=== PATIENT | male | born 1985 | race Caucasian/White ===

== ENCOUNTER 2017-11-21 20:09 | Emergency (ER) | payer SELFPAY ==
[~2017-11-21] VITALS: Ht 175.3 cm; Wt 94.3 kg
[~2017-11-21 20:09] MED LIST: NAPR-243 PO
[2017-11-21] MEDS ORDERED: NS IV 1000 ML 1,000 ML IV ONE (20:43)
[2017-11-21] MEDS ORDERED: fentaNYL INJECTION 100 MCG/2 ML AMP IVP ONE (20:45)
[2017-11-21] MEDS ORDERED: IOHEXOL 350 MG/ML 100 ML (OMNIPAQUE 350) VIAL IV ONE ×2 (21:00→22:30)
[2017-11-21 21:18] LABS: HEMOGLOBIN 15.1 G/DL (13.3-17.7); MEAN PLATELET VOLUME 9.2 FL (7.4-10.4); RED BLOOD COUNT 4.74 10^6/uL (4.35-5.85); RED CELL DISTRIBUTION WIDTH 12.1 % (10.0-14.5); WHITE BLOOD COUNT 16.1 10^3/uL (4.3-11.0)
[2017-11-21 21:34] LABS: ALANINE AMINOTRANSFERASE 18 U/L (0-55); ALBUMIN 3.9 GM/DL (3.2-4.5); ALKALINE PHOSPHATASE 67 U/L (40-136); BILIRUBIN,DIRECT 0.2 MG/DL (0.0-0.3); BILIRUBIN,INDIRECT 0.4 MG/DL; BILIRUBIN,TOTAL 0.6 MG/DL (0.1-1.0); BUN/CREATININE RATIO 13; CARBON DIOXIDE 25 MMOL/L (21-32); CHLORIDE 105 MMOL/L (98-107); CREATININE SERUM 1.04 MG/DL (0.60-1.30); GFR ESTIMATED > 60; GLUCOSE 103 MG/DL (70-105); POTASSIUM 3.9 MMOL/L (3.6-5.0); SODIUM 141 MMOL/L (135-145); TOTAL PROTEIN 7.3 GM/DL (6.4-8.2)
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
[2017-11-21] MEDS ORDERED: KETOROLAC 30 MG/ML VIAL IVP ONE (22:30)
[2017-11-21] MEDS ORDERED: CATHETER FLUSH 10 ML SYR IV PRN (22:30)
[2017-11-21 22:33] LABS: BILIRUBIN,URINE NEGATIVE (NEGATIVE); CLARITY,URINE CLEAR; COLOR,URINE YELLOW; GLUCOSE, URINE (UA) NEGATIVE (NEGATIVE); KETONES,URINE NEGATIVE (NEGATIVE); LEUKOCYTE ESTERASE ,URINE NEGATIVE (NEGATIVE); NITRITE,URINE NEGATIVE (NEGATIVE); PH,URINE 6.5 (5-9); PROTEIN,URINE 1+ (NEGATIVE); UROBILINOGEN,URINE NORMAL (NORMAL)
[2017-11-21 22:42] LABS: BACTERIA,URINE NEGATIVE /HPF; URINE OTHER FEW SPERM /HPF
[2017-11-21 23:02] LABS: AMPHETAMINE SCREEN, URINE POSITIVE (NEGATIVE); BARBITURATE SCREEN URINE NEGATIVE (NEGATIVE); BENZODIAZEPINES SCREEN URINE NEGATIVE (NEGATIVE); CANNABINOID SCREEN, URINE POSITIVE (NEGATIVE); COCAINE SCREEN URINE NEGATIVE (NEGATIVE); METHADONE STAT NEGATIVE (NEGATIVE); METHAMPHETAMINE SCREEN URINE S POSITIVE (NEGATIVE); OPIATE SCREEN URINE NEGATIVE (NEGATIVE); OXYCODONE STAT NEGATIVE (NEGATIVE); PROPOXYPHENE STAT NEGATIVE (NEGATIVE); TRICYCLIC ANTIDEPRESSANTS SCRE NEGATIVE (NEGATIVE)
[2017-11-21] MEDS ORDERED: AMOX500T2 PO (23:10)
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
[2017-11-21 23:18] VITALS: BP 143/105
--- OUTSIDE RECORDS SUMMARY | 2017-11-22 19:24 | XMS REPORT | Continuity of Care Document ---
Author Author [facility] Address Unknown Phone Unavailable Allergies Active Description Code Type Severity Reaction Onset Reported/Identified Relationship to Patient Clinical Status Yes NKANo Known Allergies NKA Miscellaneous Allergy Mild N/A 12/19/2009 Medications There is no data. Problems Date Dx Coded Attending Type Code Diagnosis Diagnosed By 02/17/2015 NATALIE BRITO MD Ot 923.00 02/17/2015 NATALIE BRITO MD Ot 959.3 02/17/2015 NATALIE BRITO MD Ot E000.8 02/17/2015 NATALIE BRITO MD Ot E817.1 Procedures There is no data. Results Test Result Range Automated blood complete blood count (hemogram) panel - 11/21/17 21:00 Blood leukocytes automated count (number/volume) 16.1 10*3/uL 4.3-11.0 Blood erythrocytes automated count (number/volume) 4.74 10*6/uL 4.35-5.85 Venous blood hemoglobin measurement (mass/volume) 15.1 g/dL 13.3-17.7 Blood hematocrit (volume fraction) 44 % 40-54 Automated erythrocyte mean corpuscular volume 92 [foz_us] 80-99 Automated erythrocyte mean corpuscular hemoglobin (mass per erythrocyte) 32 pg 25-34 Automated erythrocyte mean corpuscular hemoglobin concentration measurement ( mass/volume) 35 g/dL 32-36 Automated erythrocyte distribution width ratio 12.1 % 10.0-14.5 Automated blood platelet count (count/volume) 285 10*3/uL 130-400 Automated blood platelet mean volume measurement 9.2 [foz_us] 7.4-10.4 Liver function panel (serum or plasma alk phos, alb, total and direct bili, total protein, ALT, AST) - 11/21/17 21:00 Serum or plasma total bilirubin measurement (mass/volume) 0.6 mg/dL 0.1-1.0 Serum or plasma alkaline phosphatase measurement (enzymatic activity/volume) 67 U/L 40-136 Serum or plasma aspartate aminotransferase measurement (enzymatic activity/ volume) 17 U/L 5-34 Serum or plasma alanine aminotransferase measurement (enzymatic activity/volume ) 18 U/L 0-55 Serum or plasma protein measurement (mass/volume) 7.3 g/dL 6.4-8.2 Serum or plasma albumin measurement (mass/volume) 3.9 g/dL 3.2-4.5 Bilirubin direct 0.2 mg/dL 0.0-0.3 Serum or plasma indirect bilirubin measurement (mass/volume) 0.4 mg/ dL NR Whole blood basic metabolic panel - 11/21/17 21:00 Serum or plasma sodium measurement (moles/volume) 141 mmol/L 135-145 Serum or plasma potassium measurement (moles/volume) 3.9 mmol/L 3.6-5.0 Serum or plasma chloride measurement (moles/volume) 105 mmol/L 98-107 Carbon dioxide 25 mmol/L 21-32 Serum or plasma anion gap determination (moles/volume) 11 mmol/L 5-14 Serum or plasma urea nitrogen measurement (mass/volume) 14 mg/dL 7-18 Serum or plasma creatinine measurement (mass/volume) 1.04 mg/dL 0.60-1.30 Serum or plasma urea nitrogen/creatinine mass ratio 13 NRG Serum or plasma creatinine measurement with calculation of estimated glomerular filtration rate > [facility] Serum or plasma glucose measurement (mass/volume) 103 mg/dL 70-105 Serum or plasma calcium measurement (mass/volume) 9.0 mg/dL 8.5-10.1 Serum or plasma ethanol measurement (mass/volume) - 11/21/17 21:00 Serum or plasma ethanol measurement (mass/volume) < mg/dL <10 Complete urinalysis with reflex to culture - 11/21/17 22:24 Urine color determination YELLOW NRG Urine clarity determination CLEAR NRG Urine pH measurement by test strip 6.5 5-9 Specific gravity of urine by test strip 1.020 1.016- 1.022 Urine protein assay by test strip, semi-quantitative 1+ NEGATIVE Urine glucose detection by automated test strip NEGATIVE NEGATIVE Erythrocytes detection in urine sediment by light microscopy NEGATIVE NEGATIVE Urine ketones detection by automated test strip NEGATIVE NEGATIVE Urine nitrite detection by test strip NEGATIVE NEGATIVE Urine total bilirubin detection by test strip NEGATIVE NEGATIVE Urine urobilinogen measurement by automated test strip (mass/volume) NORMAL NORMAL Urine leukocyte esterase detection by dipstick NEGATIVE NEGATIVE Automated urine sediment erythrocyte count by microscopy (number/high power field) NONE NRG Automated urine sediment leukocyte count by microscopy (number/high power field ) [HPF] NRG Bacteria detection in urine sediment by light microscopy NEGATIVE NRG Crystals detection in urine sediment by light microscopy NONE NRG Casts detection in urine sediment by light microscopy NONE NRG Mucus detection in urine sediment by light microscopy SMALL NRG Complete urinalysis with reflex to culture NO NRG Other elements identification in urine sediment by light microscopy FEW SPERM NRG Urine drug screening test - 11/21/17 22:24 Urine phencyclidine detection by screening method NEGATIVE NEGATIVE Urine benzodiazepines detection by screening method NEGATIVE NEGATIVE Urine cocaine detection NEGATIVE NEGATIVE Urine amphetamines detection by screening method POSITIVE NEGATIVE Urine methamphetamine detection by screening method POSITIVE NEGATIVE Urine cannabinoids detection by screening method POSITIVE NEGATIVE Urine opiates detection by screening method NEGATIVE NEGATIVE Urine barbiturates detection NEGATIVE NEGATIVE Screening urine tricyclic antidepressants detection NEGATIVE NEGATIVE Urine methadone detection by screening method NEGATIVE NEGATIVE Urine oxycodone detection NEGATIVE NEGATIVE Urine propoxyphene detection NEGATIVE NEGATIVE Encounters ACCT No. Visit Date/Time Discharge Status Pt. Type Provider Facility Loc./Unit Complaint [id number] 02/17/2015 00:39:00 02/17/2015 01:25:00 DIS Emergency ALISHA ARAGON, NATALIE Salgado [facility] [id number] 11/21/2017 21:20:00 Document Registration
== END 2017-11-21 23:18 | disposition home or self-care (01) ==
LOC: EDUNIT# 20:09 → ER 20:11
DX: S06.0X1A Concussion with loss of consciousness of 30 minutes or less, initial encounter (principal); S20.212A Contusion of left front wall of thorax, initial encounter; S40.022A Contusion of left upper arm, initial encounter; F15.10 Other stimulant abuse, uncomplicated; K04.7 Periapical abscess without sinus; R93.0 Abnormal findings on diagnostic imaging of skull and head, not elsewhere classified; Z87.820 Personal history of traumatic brain injury; Z85.3 Personal history of malignant neoplasm of breast; Y04.0XXA Assault by unarmed brawl or fight, initial encounter
CPT/HCPCS: 36415; 70450; 70486; 71260; 72125; 73060; 73090; 73130; 74177; 80048; 80076; 80306; 80320; 81000; 85027; 93041; 96361; 96374; 96375

== ENCOUNTER 2020-01-31 17:19 | Emergency (ER) | payer SELFPAY ==
[~2020-01-31] VITALS: Ht 165.1 cm; Wt 79.5 kg
[~2020-01-31 17:19] MED LIST changes: +AMOX500T2 PO
[2020-01-31] MEDS ORDERED: KETOROLAC 30 MG/ML VIAL IVP ONE (17:30)
[2020-01-31] MEDS ORDERED: ONDANSETRON 4 MG/2 ML (SDV) Z0FRAN IVP ONE (17:30)
[2020-01-31 17:32] LABS: BASOPHILS % (AUTO) 0 % (0-10); EOSINOPHILS # (AUTO) 0.1 10^3/uL (0.0-0.3); EOSINOPHILS % (AUTO) 1 % (0-10); HEMATOCRIT 43 % (40-54); LYMPHOCYTES # (AUTO) 1.2 X 10^3 (1.0-4.0); LYMPHOCYTES % (AUTO) 13 % (12-44); MEAN CORPUSCULAR HEMOGLOBIN 32 PG (25-34); MEAN CORPUSCULAR HGB CONC 35 G/DL (32-36); MEAN CORPUSCULAR VOLUME 90 FL (80-99); MEAN PLATELET VOLUME 10.4 FL (7.4-10.4); MONOCYTES # (AUTO) 0.8 X 10^3 (0.0-1.0); MONOCYTES % (AUTO) 9 % (0-12); NEUTROPHILS # (AUTO) 6.9 X 10^3 (1.8-7.8); NEUTROPHILS % (AUTO) 77 % (42-75); PLATELET COUNT 324 10^3/uL (130-400); RED CELL DISTRIBUTION WIDTH 12.8 % (10.0-14.5)
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
[2020-01-31] MEDS ORDERED: HYDR-4226 PO (18:00)
[2020-01-31] MEDS ORDERED: IBUP-1780 PO (18:00)
[2020-01-31] MEDS ORDERED: SULF1TAB35 PO (18:00)
--- NOTE | 2020-01-31 18:12 | Diagnostic Imaging Report ---
PROCEDURE: CT urinary tract, rule out kidney stone. TECHNIQUE: Multiple contiguous axial images were obtained through the abdomen and pelvis without the use of intravenous contrast. Auto Exposure Controls were utilized during the CT exam to meet ALARA standards for radiation dose reduction. INDICATION: Right side abdominal pain. Evaluate for kidney stones. COMPARISON: Correlation is made with the prior CT study from 11/21/2017. FINDINGS: The visualized lung bases appear clear without evidence of infiltrate or an effusion. The liver demonstrates no noncontrast evidence of a focal intrahepatic abnormality. Gallbladder is nondistended without radiodense gallstone or biliary dilatation. The pancreas is unremarkable. The spleen appears normal. There is no adrenal mass. There is mild right-sided hydroureter with some periureteric fat stranding. This is secondary to a 2 mm stone that is at the right ureterovesicular junction. There is no significant hydronephrosis. The left kidney appears unremarkable without evidence of left-sided stones. The stomach is nondistended. Small and large bowel are normal in caliber without obstruction. The appendix appears normal. There are no findings of free air, free fluid or abscess. Urinary bladder nondistended. There are fat-containing inguinal hernias. No pathologic adenopathy evident. Aorta normal in caliber. There is no acute or suspicious osseous abnormality. Previous left femoral antegrade intramedullary nail fixation of a prior femoral fracture noted on the social insurance analyst tomogram. IMPRESSION: 1. A 2 mm stone at the right ureterovesicular junction results in mild right-sided hydroureter and some periureteric fat stranding. There is no significant hydronephrosis. 2. Left kidney nonobstructed. No left-sided urolithiasis evident. 3. Bilateral fat-containing inguinal hernias. 4. Otherwise unremarkable noncontrast CT abdomen and pelvis. Dictated by: Dictated on workstation # [id number]
[2020-01-31] MEDS ORDERED: RX-HYDROCODONE/APAP 5/325 MG #4 TAB PK PO PRN (18:15)
[2020-01-31 18:32] LABS: ALANINE AMINOTRANSFERASE 18 U/L (0-55); ALBUMIN 3.9 GM/DL (3.2-4.5); ALKALINE PHOSPHATASE 61 U/L (40-136); BILIRUBIN,TOTAL 0.4 MG/DL (0.1-1.0); BUN/CREATININE RATIO 11; CALCIUM 8.2 MG/DL (8.5-10.1); CARBON DIOXIDE 23 MMOL/L (21-32); CHLORIDE 106 MMOL/L (98-107); CREATININE SERUM 1.03 MG/DL (0.60-1.30); GFR ESTIMATED > 60; GLUCOSE 114 MG/DL (70-105); POTASSIUM 4.4 MMOL/L (3.6-5.0); SODIUM 137 MMOL/L (135-145); TOTAL PROTEIN 6.8 GM/DL (6.4-8.2)
--- NOTE | 2020-01-31 18:40 | NUR ---
Normal saline fluid bolus initiated per cc ems complete (1000ml intake).
[2020-01-31] MEDS ORDERED: NS IV 1000 ML 1,000 ML IV SCH (18:45)
[2020-01-31 19:24] LABS: BILIRUBIN,URINE NEGATIVE (NEGATIVE); CLARITY,URINE CLEAR; COLOR,URINE YELLOW; GLUCOSE, URINE (UA) NEGATIVE (NEGATIVE); KETONES,URINE NEGATIVE (NEGATIVE); LEUKOCYTE ESTERASE ,URINE NEGATIVE (NEGATIVE); NITRITE,URINE NEGATIVE (NEGATIVE); PROTEIN,URINE NEGATIVE (NEGATIVE)
[2020-01-31 19:45] LABS: AMPHETAMINE SCREEN, URINE POSITIVE (NEGATIVE); BARBITURATE SCREEN URINE NEGATIVE (NEGATIVE); BENZODIAZEPINES SCREEN URINE NEGATIVE (NEGATIVE); CANNABINOID SCREEN, URINE NEGATIVE (NEGATIVE); COCAINE SCREEN URINE NEGATIVE (NEGATIVE); METHADONE STAT NEGATIVE (NEGATIVE); METHAMPHETAMINE SCREEN URINE S POSITIVE (NEGATIVE); OPIATE SCREEN URINE NEGATIVE (NEGATIVE); OXYCODONE STAT NEGATIVE (NEGATIVE); PROPOXYPHENE STAT NEGATIVE (NEGATIVE); TRICYCLIC ANTIDEPRESSANTS SCRE NEGATIVE (NEGATIVE)
[2020-01-31 19:50] VITALS: BP 132/79
[2020-01-31 19:50] LABS: BACTERIA,URINE NEGATIVE /HPF; WBC,URINE 0-2 /HPF
== END 2020-01-31 19:51 | disposition home or self-care (01) ==
LOC: EDUNIT# 17:19 → ER 17:21
DX: N20.1 Calculus of ureter (principal)
CPT/HCPCS: 36415; 74176; 80053; 80306; 81000; 85025; 96361; 96374; 96375

== ENCOUNTER 2021-07-26 19:15 | Emergency (ER) | payer SELFPAY ==
[~2021-07-26] VITALS: Ht 177.8 cm; Wt 84.8 kg
[~2021-07-26 19:15] MED LIST changes: +HYDR-4226 PO; +IBUP-1780 PO; +SULF1TAB38 PO
[2021-07-26] MEDS ORDERED: KETOROLAC 30 MG/ML VIAL IVP ONE (19:30)
[2021-07-26] MEDS ORDERED: ORPHENADRINE 60 MG/2 ML (NORFLEX) AMP (ED ONLY) IV ONE (19:30)
[2021-07-26 19:37] LABS: BASOPHILS % (AUTO) 0 % (0-10); EOSINOPHILS # (AUTO) 0.1 10^3/uL (0.0-0.3); EOSINOPHILS % (AUTO) 1 % (0-10); HEMATOCRIT 45 % (40-54); HEMOGLOBIN 15.2 g/dL (13.3-17.7); LYMPHOCYTES # (AUTO) 1.5 10^3/uL (1.0-4.0); LYMPHOCYTES % (AUTO) 20 % (12-44); MEAN CORPUSCULAR HEMOGLOBIN 31 pg (25-34); MEAN CORPUSCULAR HGB CONC 34 g/dL (32-36); MEAN CORPUSCULAR VOLUME 93 fL (80-99); MEAN PLATELET VOLUME 8.9 fL (9.0-12.2); MONOCYTES # (AUTO) 0.6 10^3/uL (0.0-1.0); MONOCYTES % (AUTO) 8 % (0-12); NEUTROPHILS # (AUTO) 5.3 10^3/uL (1.8-7.8); NEUTROPHILS % (AUTO) 70 % (42-75); PLATELET COUNT 242 10^3/uL (130-400); WHITE BLOOD COUNT 7.6 10^3/uL (4.3-11.0)
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
--- NOTE | 2021-07-26 20:02 | Diagnostic Imaging Report ---
PROCEDURE: CT head and CT cervical spine without contrast. TECHNIQUE: Multiple contiguous axial images were obtained through the brain and cervical spine without the use of intravenous contrast. Sagittal and coronal reformations through the cervical spine were then performed. Auto Exposure Controls were utilized during the CT exam to meet ALARA standards for radiation dose reduction. INDICATION: Chronic neck pain. Head and neck pain. Weakness. COMPARISON: 11/21/2017. FINDINGS: CT head: No large acute territorial ischemia, mass, or hemorrhage. No midline shift or mass effect. Stable asymmetric prominence of the trigone of the left lateral ventricle. No evidence of acute hydrocephalus. The cortical sulci and basilar cisterns are patent and unremarkable. The calvarium is intact. The visualized paranasal sinuses are clear. CT cervical spine: No acute fracture or dislocation is seen in the cervical spine. No focal osseous lesions. Vertebral body heights are well-maintained. The craniocervical junction is well-maintained. Mild degenerative changes are seen in the cervical spine with disc osteophyte complexes and uncovertebral arthropathy. Soft tissues of the neck are unremarkable. The included lung apices are clear. IMPRESSION: 1. No hemorrhage or focal intra-axial mass. No CT evidence of large acute territorial ischemia. 2. No acute fracture or dislocation in the cervical spine. Dictated by: Dictated on workstation # [id number]
[2021-07-26 20:10] LABS: CALCIUM 9.7 MG/DL (8.5-10.1); CREATININE SERUM 0.92 MG/DL (0.60-1.30); POTASSIUM 3.9 MMOL/L (3.6-5.0)
[2021-07-26 20:32] VITALS: BP 132/91
== END 2021-07-26 20:32 | disposition home or self-care (01) ==
LOC: EDUNIT# 19:15 → ER 19:17
DX: M43.6 Torticollis (principal); Z87.820 Personal history of traumatic brain injury
CPT/HCPCS: 36415; 70450; 72125; 80048; 85025; 86141

== ENCOUNTER 2021-08-02 12:58 | Emergency (ER) | payer SELFPAY ==
[~2021-08-02] VITALS: Ht 177.8 cm; Wt 75.0 kg
--- NOTE | 2021-08-02 13:08 | ED General ---
General Stated Complaint: NECK PAIN Source of Information: Patient Exam Limitations: No Limitations (KAYLA EVANS APRN) History of Present Illness Date Seen by Provider: Aug 02, 2021 Time Seen by Provider: 13:06 Initial Comments To ER with recurrent neck pain. He was seen here about a week ago for the same. No fever no chills. Pain resolved with cervical paraspinous injection of lidocaine plus intramuscular Toradol and Norflex. He was diagnosed with torticollis. He states that he awakened this morning with a stiff neck and then tripped over a toy in the hallway causing him to fall and he heard a cracking sensation in his neck. No pain down either of his arms. Timing/Duration: 1-2 Days Severity: Moderate Associated Systoms: Denies Symptoms (KAYLA EVANS APRN) Allergies and Home Medications Allergies Coded Allergies: NKANo Known Allergies (Unverified Allergy, Mild, 12/19/09) Patient Home Medication List Home Medication List Reviewed: Yes (KAYLA EVANS APRN) Amoxicillin (Amoxicillin) 500 Mg Tablet, 1,000 MG PO BID Prescribed by: LAYNE MARTI on 11/21/17 2310 Hydrocodone/Acetaminophen (Hydrocodone/Acetaminophen 5 MG/325 MG TAB) 1 Each Tablet, 1 TAB PO Q4-6HR Prescribed by: KAYLA EVANS on 01/31/20 1802 Ibuprofen (Ibuprofen) 800 Mg Tablet, 800 MG PO Q8H PRN for PAIN Prescribed by: KAYLA EVANS on 01/31/20 1800 Methocarbamol (Methocarbamol) 750 Mg Tablet, 750 MG PO Q6-8HR Prescribed by: KAYLA EVANS on 08/02/21 1407 Naproxen (Naprosyn) 500 Mg Tablet, 1 EACH PO BID PRN Prescribed by: JENELLE PERLA MD on 12/19/09 0624 Naproxen (Naprosyn) 500 Mg Tablet, 500 MG PO BID PRN for PAIN-MODERATE (5-7) Prescribed by: KAYLA EVANS on 08/02/21 1407 Sulfamethoxazole/Trimethoprim (Bactrim Ds Tablet) 1 Each Tablet, 1 EACH PO BID Prescribed by: KAYLA EVANS on 01/31/20 1800 Review of Systems Review of Systems Constitutional: see HPI EENTM: see HPI Respiratory: no symptoms reported Cardiovascular: no symptoms reported Genitourinary: no symptoms reported Musculoskeletal: no symptoms reported Skin: no symptoms reported Psychiatric/Neurological: No Symptoms Reported Hematologic/Lymphatic: No Symptoms Reported Immunological/Allergic: no symptoms reported (KAYLA EVANS APRN) Past Agnvcgx-Ukeqzh-Nvedua Hx Seasonal Allergies Seasonal Allergies: No (KAYLA EVANS APRN) Past Medical History Surgeries: Yes (s/p traumatic injury) Orthopedic Respiratory: No Cardiac: No Neurological: Yes Traumatic Brain Injury Genitourinary: No Gastrointestinal: No Musculoskeletal: No Endocrine: No HEENT: No Breast Psychosocial: No Integumentary: No (KAYLA EVANS APRN) Physical Exam Vital Signs Vital Signs - First Documented 08/02/21 13:02 Temp 36.3 Pulse 77 Resp 18 B/P (MAP) 125/74 (91) Pulse Ox 100 O2 Delivery Room Air (YONI GOMEZ DO) Vital Signs Capillary Refill : (KAYLA EVANS APRN) Height, Weight, BMI Height: 5'9.00" Weight: 208lbs. oz. 94.182569xg; 26.00 BMI Method:Stated General Appearance: No Apparent Distress, WD/WN, Other (Refuses to turn head to either side or flex or extend.) Eyes: Bilateral Eye Normal Inspection, Bilateral Eye PERRL HEENT: PERRL/EOMI, TMs Normal Neck: Full Range of Motion, Normal Inspection Respiratory: No Accessory Muscle Use, No Respiratory Distress Gastrointestinal: Normal Bowel Sounds, Non Tender, Soft Extremity: Normal Capillary Refill, Normal Inspection Neurologic/Psychiatric: Alert, Oriented x3 Skin: Normal Color, Warm/Dry (KAYLA EVANS APRN) Progress/Results/Core Measures Suspected Sepsis SIRS Temperature: Pulse: Respiratory Rate: Blood Pressure / Mean: (KAYLA EVANS APRN) Results/Orders Medications Given in ED Current Medications Medications Dose Ordered Sig/Michelle Route Start Time Stop Time Status Last Admin Dose Admin Ketorolac Tromethamine 60 mg ONCE ONCE IM 08/02/21 13:15 08/02/21 13:16 DC 08/02/21 13:15 60 MG Orphenadrine Citrate 60 mg ONCE ONCE IM 08/02/21 13:15 08/02/21 13:16 DC 08/02/21 13:15 60 MG (YONI GOMEZ DO) Vital Signs/I&O 08/02/21 08/02/21 13:02 14:22 Temp 36.3 Pulse 77 71 Resp 18 18 B/P (MAP) 125/74 (91) 121/74 Pulse Ox 100 99 O2 Delivery Room Air Room Air (YONI GOMEZ DO) Vital Signs/I&O Capillary Refill : (KAYLA EVANS APRN) Departure Communication (Admissions) 1412-pain is much improved after Toradol and Norflex. (KAYLA EVANS APRN) Impression Primary Impression: Ronyllis Disposition: 01 HOME, SELF-CARE Condition: Stable Departure-Patient Inst. Decision time for Depature: 14:06 (KAYLA EVANS APRN) Referrals: CARLOS SHAIKH BETHANY N MD GAULT, HOLLY R MD HUDSON, CASEY V DO HUERTER, DAVID F MD NO,LOCAL PHYSICIAN (PCP) Primary Care Physician Patient Instructions: Torticollis, Adult Add. Discharge Instructions: 1. Call [facility] today to make an appointment for follow-up as soon as they can see you. Anti-inflammatories and muscle relaxers as directed. Scripts Methocarbamol (Methocarbamol) 750 Mg Tablet 750 MG PO Q6-8HR for Back Pain, #20 TAB Prov: KAYLA EVANS APRN 08/02/21 Naproxen (Naprosyn) 500 Mg Tablet 500 MG PO BID PRN for PAIN-MODERATE (5-7), #30 TAB 0 Refills Prov: KAYLA EVANS APRN 08/02/21 Work/School Note: Work Release Form Date Seen in the Emergency Department: Aug 02, 2021 Return to Work: Aug 04, 2021 ATTENDING PHYSICIAN NOTE: I WAS PHYSICALLY PRESENT ER PHYSICIAN WHEN THIS PATIENT WAS IN ER, BUT I WAS NOT INVOLVED IN DECISION MAKING OR ANY CARE OF THIS PATIENT. (YONI GOMEZ DO) KAYLA EVANS APRN Aug 02, 2021 13:08 YONI GOMEZ DO Aug 02, 2021 15:48
[2021-08-02] MEDS ORDERED: ORPHENADRINE 60 MG/2 ML (NORFLEX) AMP (ED ONLY) IM ONE (13:15)
[2021-08-02] MEDS ORDERED: KETOROLAC 60 MG/2 ML VIAL IM ONE (13:15)
--- NOTE | 2021-08-02 13:56 | Diagnostic Imaging Report ---
CLINICAL INDICATION: Patient has left-sided neck pain which is worse since last week. EXAM: Axial CT scan of the cervical spine performed without IV contrast. Sagittal and coronal reformatted images were created. Auto Exposure Controls were utilized during the CT exam to meet ALARA standards for radiation dose reduction. COMPARISON: CT scan of the cervical spine dated 07/26/2021. FINDINGS: There is no acute cervical spine fracture or dislocation. The intervertebral disc heights and vertebral body heights are within normal limits. Stable straightening of the cervical spine posture. There is no significant paraspinal soft tissue abnormality. Visualized upper lung garcia are clear. IMPRESSION: Stable CT scan of the cervical spine with no acute cervical spine fracture or dislocation. Dictated by: Dictated on workstation # [id number]
[2021-08-02] MEDS ORDERED: NAPR-1071 PO (14:07)
[2021-08-02] MEDS ORDERED: METH-732 PO (14:07)
[2021-08-02 14:22] VITALS: BP 121/74
== END 2021-08-02 14:12 | disposition home or self-care (01) ==
LOC: EDUNIT# 12:58 → ER 12:59
DX: M43.6 Torticollis (principal); Z87.820 Personal history of traumatic brain injury
CPT/HCPCS: 72125

== ENCOUNTER 2021-10-17 02:40 | Emergency (ER) | payer SELFPAY ==
[~2021-10-17] VITALS: Ht 177 cm; Wt 85.0 kg
[~2021-10-17 02:40] MED LIST changes: +METH-732 PO; +NAPR-1071 PO
--- NOTE | 2021-10-17 03:04 | ED Head Injury ---
General Chief Complaint: Head/Cervical Problems Stated Complaint: HEAD BUMP Nursing Triage Note: PT AMB TO ER WITH C/O SCALP LAC DUE TO ATTIC DOOR FALLING ON HIS HEAD WHILE HE WAS TRYING TO PUT BOXES BACK IN THE ATTIC. PT DID HAVE LOC Source: patient Exam Limitations: no limitations History of Present Illness Date Seen by Provider: Oct 17, 2021 Time Seen by Provider: 02:49 Initial Comments Here with laceration to the top of his head. Apparently he was putting stuff up in his attic when the string broke on his attic ladder and the door came open and hit him on top of the head. No loss of consciousness. Denies other injury. Main concern is he had a bleeding wound and it would not stop bleeding so he came in for further evaluation and possible repair. Denies vision or balance problems or nausea or vomiting. Tetanus is not up-to-date. Occurred: just prior to arrival (Approximately 30 minutes ago) Severity: mild Location: frontal Method of Injury: direct blow Loss of Consciousness: no loss of consciousness Associated Systoms: No Nausea/Vomiting Allergies and Home Medications Allergies Coded Allergies: NKANo Known Allergies (Unverified Allergy, Mild, 12/19/09) Patient Home Medication List Home Medication List Reviewed: Yes Amoxicillin (Amoxicillin) 500 Mg Tablet, 1,000 MG PO BID Prescribed by: LAYNE MARTI on 11/21/17 2310 Hydrocodone/Acetaminophen (Hydrocodone/Acetaminophen 5 MG/325 MG TAB) 1 Each Tablet, 1 TAB PO Q4-6HR Prescribed by: KAYLA EVANS on 01/31/20 1802 Ibuprofen (Ibuprofen) 800 Mg Tablet, 800 MG PO Q8H PRN for PAIN Prescribed by: KAYLA EVANS on 01/31/20 1800 Methocarbamol (Methocarbamol) 750 Mg Tablet, 750 MG PO Q6-8HR Prescribed by: KAYLA EVANS on 08/02/21 1407 Naproxen (Naprosyn) 500 Mg Tablet, 1 EACH PO BID PRN Prescribed by: JENELLE PERLA MD on 12/19/09 0624 Naproxen (Naprosyn) 500 Mg Tablet, 500 MG PO BID PRN for PAIN-MODERATE (5-7) Prescribed by: KAYLA EVANS on 08/02/21 1407 Sulfamethoxazole/Trimethoprim (Bactrim Ds Tablet) 1 Each Tablet, 1 EACH PO BID Prescribed by: KAYLA EVANS on 01/31/20 1800 Review of Systems Review of Systems Constitutional: No chills, No fever Eyes: Denies Blurred Vision, Denies Decreased Acuity Ears, Nose, Mouth, Throat: no symptoms reported Respiratory: no symptoms reported Cardiovascular: no symptoms reported Musculoskeletal: No back pain, No neck pain Skin: lesions (Scalp frontal just behind onset of hairline that is midline and approximately 2 cm) Psychiatric/Neurological: Headache (Area of wound); Denies Weakness Past Rsvygly-Ceorcq-Gkrwmz Hx Patient Social History Tobacco Use?: No Substance use?: No Alcohol Use?: No Pt feels they are or have been: No Immunizations Up To Date Influenza Vaccine Up-to-Date: No; Not Current First/Initial COVID19 Vaccinat: FEBRUARY 2021 COVID19 Vaccine 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[employer] Seasonal Allergies Seasonal Allergies: No Past Medical History Surgeries: Yes (s/p traumatic injury) Orthopedic Respiratory: No Cardiac: No Neurological: Yes Traumatic Brain Injury Genitourinary: No Gastrointestinal: No Musculoskeletal: No Endocrine: No HEENT: No Breast Psychosocial: No Integumentary: No Family Medical History Reviewed Nursing Family Hx No Pertinent Family Hx Physical Exam Vital Signs Vital Signs - First Documented 10/17/21 02:50 Temp 36.7 Pulse 100 Resp 20 B/P (MAP) 142/92 (109) Pulse Ox 98 O2 Delivery Room Air Capillary Refill : Height, Weight, BMI Height: 5'9.00" Weight: 208lbs. oz. 94.868173jk; 27.00 BMI Method:Stated General Appearance: WD/WN, no apparent distress HEENT: PERRL/EOMI, TMs normal, pharynx normal Neck: non-tender, full range of motion, supple, normal inspection Cardiovascular: regular rate, rhythm, no murmur Respiratory: lungs clear, normal breath sounds Psychiatric: alert, oriented x 3 Crainal Nerves: normal hearing, normal speech, PERRL Coordination/Gait: normal gait Skin: warm/dry, other (2 cm midline wound to the scalp at frontal portion just at onset of hairline running posterior. Bleeding controlled currently.) Raz Coma Score Best Eye Response: (4) Open Spontaneously Best Verbal Response: (5) Oriented Best Motor Response: (6) Obeys Commands Procedures/Interventions Wound Location: Scalp Other Wound Location Frontal Wound Length (cm): 2 Wound's Depth, Shape: superficial, linear Wound Explored: contaminated Irrigated w/ Saline (ccs): 50 Betadine Prep?: Yes Anesthesia: 1% Lidocaine Volume Anesthetic (ccs): 4 Wound Debrided: minimal Staple Repair: Stapler 35W Number of Sutures: 6 Layer Closure?: 1 Number Deep Layer Sutures: 0 Progress Cleaned and anesthetized. Wound closed via tamie with good closure. After stapling wound, antibiotic ointment applied to the staple line. Tolerated procedure well with no complications. Progress/Results/Core Measures Results/Orders My Orders Orders - LITZY HIGGINS MD Dipht,Pertuss(Acell),Tet Adult (Boostrix (10/17/21 03:15) Medications Given in ED Current Medications Medications Dose Ordered Sig/Michelle Route Start Time Stop Time Status Last Admin Dose Admin Diphtheria/ Tetanus/Acell Pertussis 0.5 ml ONCE ONCE IM 10/17/21 03:15 10/17/21 03:17 DC 10/17/21 03:10 0.5 ML Vital Signs/I&O 10/17/21 02:50 Temp 36.7 Pulse 100 Resp 20 B/P (MAP) 142/92 (109) Pulse Ox 98 O2 Delivery Room Air Blood Pressure Mean: 109 Progress Progress Note : Progress Note Seen and evaluated. Wound cleaned. Anesthetized and closed with tamie. I did discuss option of CT scan with the patient. There is no mobile bone to area of concern with no loss of consciousness and no nausea or vomiting. Given these findings, CT is not indicated and patient agrees and does not want to pursue CT scan. Patient is low risk and not on blood thinners. Discharged home with return precautions. Patient verbalized understanding of instructions and agreement with plan. Tetanus updated. Departure Impression Primary Impression: Injury of head and neck Qualified Codes: S09.90XA - Unspecified injury of head, initial encounter; S19.9XXA - Unspecified injury of neck, initial encounter Additional Impression: Scalp laceration Qualified Codes: S01.01XA - Laceration without foreign body of scalp, ini tial encounter Disposition: HOME, SELF-CARE Condition: Improved Departure-Patient Inst. Decision time for Depature: 03:09 Referrals: NO,LOCAL PHYSICIAN (PCP/Family) Primary Care Physician Patient Instructions: Laceration Repair With Tamie (DC), Minor Head Injury, Adult ED Add. Discharge Instructions: All discharge instructions reviewed with patient and/or family. Voiced understanding. [place] out in 7 days. You may use antibiotic ointment or cream to wound once or twice daily. It is okay to shower and wash wound gently and pat dry. Return for foul-smelling drainage, worse pain, fever, vomiting, vision or balance problems or other concerns as needed. You may take ibuprofen 800 mg every 8 hours as needed for pain. You may also take Tylenol/acetaminophen 1000 mg every 8 hours as needed for pain. LITZY HIGGINS MD Oct 17, 2021 03:04
[2021-10-17] MEDS ORDERED: TETANUS,DIPTH,PERTUSS P/F (BOOSTRIX) 0.5 ML VIAL IM ONE (03:15)
[2021-10-17 03:29] VITALS: BP 135/87
== END 2021-10-17 03:30 | disposition home or self-care (01) ==
LOC: EDUNIT# 02:40 → ER 02:43
DX: S01.01XA Laceration without foreign body of scalp, initial encounter (principal); S09.90XA Unspecified injury of head, initial encounter; S19.9XXA Unspecified injury of neck, initial encounter; Z23 Encounter for immunization; Z87.820 Personal history of traumatic brain injury; W22.8XXA Striking against or struck by other objects, initial encounter
CPT/HCPCS: 12001; 90715

== ENCOUNTER 2021-10-24 13:31 | Emergency (ER) | payer SELFPAY ==
[~2021-10-24] VITALS: Ht 177.8 cm; Wt 84.0 kg
[2021-10-24 13:35] VITALS: BP 119/80
== END 2021-10-24 13:50 | disposition home or self-care (01) ==
LOC: EDUNIT# 13:31 → ER 13:32
DX: Z48.02 Encounter for removal of sutures (principal)

== ENCOUNTER 2022-01-16 10:09 | Emergency (ER) | payer SELFPAY ==
[~2022-01-16] VITALS: Ht 177 cm; Wt 86.0 kg
--- NOTE | 2022-01-16 11:46 | ED Cough/URI ---
General Chief Complaint: Cough/Cold/Flu Symptoms Stated Complaint: SOA/ COUGH/SORE THROAT / SWELLING - BILAT EAR PAIN Nursing Triage Note: PT PRESENTS TO ED VIA POV FROM HOME WITH COMPLAINTS OF SORE THROAT, COUGH, AND FEVER X 3 DAYS. Source: patient Exam Limitations: no limitations (KAYLA EVANS APRN) History of Present Illness Date Seen by Provider: Jan 16, 2022 Time Seen by Provider: 11:45 Initial Comments To ER by private vehicle with reports of 3-day history of cough productive in nature, shortness of breath, sore throat, swollen neck, headache, rhinorrhea. Timing/Duration: other Severity/Quality: productive cough Prior Episodes/Possible Cause: no prior episodes Associated Symptoms: cough, fever/chills, shortness of breath (KAYLA EVANS APRN) Allergies and Home Medications Allergies Coded Allergies: NKANo Known Allergies (Unverified Allergy, Mild, 12/19/09) Patient Home Medication List Home Medication List Reviewed: Yes (KAYLA EVANS APRN) Amoxicillin (Amoxicillin) 500 Mg Tablet, 1,000 MG PO BID Prescribed by: LAYNE MARTI on 11/21/17 2310 Cephalexin (Cephalexin) 500 Mg Tablet, 500 MG PO TID Prescribed by: KAYLA EVANS on 01/16/22 1152 Hydrocodone/Acetaminophen (Hydrocodone/Acetaminophen 5 MG/325 MG TAB) 1 Each Tablet, 1 TAB PO Q4-6HR Prescribed by: KAYLA EVANS on 01/31/20 1802 Ibuprofen (Ibuprofen) 800 Mg Tablet, 800 MG PO Q8H PRN for PAIN Prescribed by: KAYLA EVANS on 01/31/20 1800 Methocarbamol (Methocarbamol) 750 Mg Tablet, 750 MG PO Q6-8HR Prescribed by: KAYLA EVANS on 08/02/21 1407 Methylprednisolone (Methylprednisolone Dose Pack) 4 Mg Tab.ds.pk, 4 MG PO UD Prescribed by: KAYLA EVANS on 01/16/22 1152 Naproxen (Naprosyn) 500 Mg Tablet, 1 EACH PO BID PRN Prescribed by: JENELLE PERLA MD on 12/19/09 0624 Naproxen (Naprosyn) 500 Mg Tablet, 500 MG PO BID PRN for PAIN-MODERATE (5-7) Prescribed by: KAYLA EVANS on 08/02/21 1407 Sulfamethoxazole/Trimethoprim (Bactrim Ds Tablet) 1 Each Tablet, 1 EACH PO BID Prescribed by: KAYLA EVANS on 01/31/20 1800 Review of Systems Review of Systems Constitutional: see HPI, chills EENTM: see HPI Respiratory: see HPI, cough Cardiovascular: no symptoms reported Genitourinary: no symptoms reported Musculoskeletal: no symptoms reported Skin: no symptoms reported Psychiatric/Neurological: No Symptoms Reported Hematologic/Lymphatic: No Symptoms Reported Immunological/Allergic: no symptoms reported (KAYLA EVANS APRN) Past Tjaiwne-Kytrnp-Jouaxa Hx Patient Social History Tobacco Use?: No Substance use?: No Alcohol Use?: No Pt feels they are or have been: No (KAYLA EVANS APRN) Immunizations Up To Date First/Initial COVID19 Vaccinat: FEBRUARY 2021 COVID19 Vaccine 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 EVANS APRN) Seasonal Allergies Seasonal Allergies: No (KAYLA EVANS APRN) Past Medical History Surgeries: Yes (s/p traumatic injury) Orthopedic Respiratory: No Cardiac: No Neurological: Yes Traumatic Brain Injury Genitourinary: No Gastrointestinal: No Musculoskeletal: No Endocrine: No HEENT: No Breast Psychosocial: No Integumentary: No (KAYLA EVANS APRN) Family Medical History No Pertinent Family Hx (KAYLA EVANS APRN) Physical Exam Vital Signs - First Documented 01/16/22 10:24 Temp 36.8 Pulse 92 Resp 20 B/P (MAP) 126/80 (95) Pulse Ox 100 (LAYNE WALKER MD) Capillary Refill : Less Than 3 Seconds (KAYLA EVANS APRN) Height: 5'9.00" Weight: 208lbs. oz. 94.091591jh; 27.00 BMI Method:Actual General Appearance: WD/WN, no apparent distress, other (Oxygen 98 200% on room air) Eyes: Bilateral Eye Normal Inspection, Bilateral Eye PERRL, Bilateral Eye Other (Tympanic membrane and external ear canal is normal in appearance) HEENT: PERRL/EOMI, normal ENT inspection, other (Multiple carious and eroded teeth) Neck: non-tender, full range of motion, other (There is no palpable lymph nodes in the anterior, submandibular or posterior cervical chain.) Respiratory: normal breath sounds, no respiratory distress, no accessory muscle use, other (Lungs are clear without wheezing) Cardiovascular: regular rate, rhythm, no murmur Gastrointestinal: normal bowel sounds, non tender, soft Neurologic/Psychiatric: alert, normal mood/affect, oriented x 3 Skin: normal color, warm/dry (KAYLA EVANS APRN) Progress/Results/Core Measures Suspected Sepsis SIRS Temperature: Pulse: 92 Respiratory Rate: 20 Blood Pressure 126 /80 Mean: 95 (KAYLA EVANS APRN) Results/Orders Lab Results Laboratory Tests Test 01/16/22 10:16 Range/Units Influenza Type A (RT-PCR) Not Detected Not Detecte Influenza Type B (RT-PCR) Not Detected Not Detecte SARS-CoV-2 RNA (RT-PCR) Not Detected Not Detecte Group A Streptococcus Screen NEGATIVE NEGATIVE (LAYNE WALKER MD) My Orders Orders - LAYNE WALKER MD Covid 19 Inhouse Test (01/16/22 10:19) Influenza A And B By Pcr (01/16/22 10:19) (LAYNE WALKER MD) Vital Signs/I&O 01/16/22 01/16/22 10:24 11:49 Temp 36.8 Pulse 92 84 Resp 20 20 B/P (MAP) 126/80 (95) 122/80 Pulse Ox 100 100 (LAYNE WALKER MD) Vital Signs/I&O Capillary Refill : Less Than 3 Seconds (KAYLA EVANS APRN) Blood Pressure Mean: 95 Departure Impression Primary Impression: Upper respiratory infection Disposition: 01 HOME, SELF-CARE Condition: Stable Departure-Patient Inst. Decision time for Depature: 11:45 (KAYLA EVANS APRN) Referrals: NO,LOCAL PHYSICIAN (PCP/Family) Primary Care Physician Patient Instructions: Viral Syndrome (DC) Add. Discharge Instructions: 1. Tylenol and ibuprofen for fever or pain control. Follow-up with your doctor later this week. Return to ER for any concerns. All discharge instructions reviewed with patient and/or family. Voiced understanding. Scripts Cephalexin (Cephalexin) 500 Mg Tablet 500 MG PO TID, #15 TAB Prov: KAYLA EVANS APRN 01/16/22 Methylprednisolone (Methylprednisolone Dose Pack) 4 Mg Tab.ds.pk 4 MG PO UD for 6 Days, #21 PKG PER DOSE PACK INSTRUCTIONS Prov: KAYLA EVANS APRN 01/16/22 Work/School Note: Work Release Form Date Seen in the Emergency Department: Jan 16, 2022 Return to Work: Jan 18, 2022 ATTENDING PHYSICIAN NOTE: I was physically present as attending physician in the emergency department during the care of this patient, but I was not directly involved in the decision making or delivery of care for this patient. (LAYNE WALKER MD) KAYLA EVANS APRN Jan 16, 2022 11:46 LAYNE WALKER MD Jan 16, 2022 19:18
[2022-01-16 11:49] VITALS: BP 122/80
[2022-01-16] MEDS ORDERED: CEPH500T PO (11:52)
[2022-01-16] MEDS ORDERED: METH4TAB10 PO (11:52)
== END 2022-01-16 11:52 | disposition home or self-care (01) ==
LOC: EDUNIT# 10:09 → ER 10:11
DX: J06.9 Acute upper respiratory infection, unspecified (principal); Z20.822 Contact with and (suspected) exposure to COVID-19
CPT/HCPCS: 87430; 87636; 99283

== ENCOUNTER 2023-01-20 18:03 | Emergency (ER) | payer SELFPAY ==
[~2023-01-20] VITALS: Ht 177.8 cm; Wt 86.2 kg
[~2023-01-20 18:03] MED LIST changes: +CEPH500T PO; +METH4TAB10 PO
[2023-01-20] MEDS ORDERED: predniSONE 20 MG TAB PO ONE (18:45)
[2023-01-20] MEDS ORDERED: RT-ALBUTEROL/IPRATROPIUM 3 ML (DUONEB) VIAL INH ONE (18:45)
--- NOTE | 2023-01-20 19:03 | ED Cough/URI ---
General Chief Complaint: Cough/Cold/Flu Symptoms Stated Complaint: SOA Nursing Triage Note: PT TO ED IN WC WITH C/O SOA, PRODUCTIVE COUGH, CONGESTION, AND INTERMITTENT FEVER FOR THE LAST FEW DAYS. Source: patient Exam Limitations: no limitations History of Present Illness Date Seen by Provider: Jan 20, 2023 Time Seen by Provider: 18:07 Initial Comments 37-year-old male presents to the emergency department today for 2 days of cough and generally feeling unwell. He states he cleaned out a house and had a whole bunch of dust and mold and is concerned he may have been exposed. 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 He denies current or history of smoking tobacco. He has had chills but no documented fevers. Cough is productive of green sputum. All other systems reviewed and negative except documented per HPI. Voice recognition software was used to help create this chart Allergies and Home Medications Allergies Coded Allergies: ANUPAMAANo Known Allergies (Unverified Allergy, Mild, 12/19/09) Patient Home Medication List Home Medication List Reviewed: Yes Amoxicillin (Amoxicillin) 500 Mg Tablet, 1,000 MG PO BID Prescribed by: LAYNE MARTI on 11/21/17 2310 Cephalexin (Cephalexin) 500 Mg Tablet, 500 MG PO TID Prescribed by: KAYLA EVANS on 01/16/22 115 Hydrocodone/Acetaminophen (Hydrocodone/Acetaminophen 5 MG/325 MG TAB) 1 Each Ta blet, 1 TAB PO Q4-6HR Prescribed by: KAYLA EVANS on 01/31/20 1802 Ibuprofen (Ibuprofen) 800 Mg Tablet, 800 MG PO Q8H PRN for PAIN Prescribed by: KAYLA EVANS on 01/31/20 1800 Methocarbamol (Methocarbamol) 750 Mg Tablet, 750 MG PO Q6-8HR Prescribed by: KAYLA EVANS on 08/02/21 1407 Methylprednisolone (Methylprednisolone Dose Pack) 4 Mg Tab.ds.pk, 4 MG PO UD Prescribed by: KAYLA EVANS on 01/16/22 1152 Naproxen (Naprosyn) 500 Mg Tablet, 1 EACH PO BID PRN Prescribed by: JENELLE PERLA MD on 12/19/09 0624 Naproxen (Naprosyn) 500 Mg Tablet, 500 MG PO BID PRN for PAIN-MODERATE (5-7) Prescribed by: KAYLA EVANS on 08/02/21 1407 Sulfamethoxazole/Trimethoprim (Bactrim Ds Tablet) 1 Each Tablet, 1 EACH PO BID Prescribed by: KAYLA EVANS on 01/31/20 1800 Review of Systems Review of Systems Constitutional: chills Past Zvfmcmr-Fpmkgk-Ajhcha Hx Patient Social History Tobacco Use?: No Use of E-Cig and/or Vaping dev: No Substance use?: No Alcohol Use?: No Pt feels they are or have been: No Immunizations Up To Date Influenza Vaccine Up-to-Date: No; Not Current First/Initial COVID19 Vaccinat: DENIES Seasonal Allergies Seasonal Allergies: No Past Medical History Surgery/Hospitalization HX: DENIES Surgeries: Yes (s/p traumatic injury) Orthopedic Respiratory: No Cardiac: No Neurological: Yes Traumatic Brain Injury Genitourinary: No Gastrointestinal: No Musculoskeletal: No Endocrine: No HEENT: No Breast Psychosocial: No Integumentary: No Family Medical History Reviewed Nursing Family Hx No Pertinent Family Hx Physical Exam Vital Signs - First Documented Capillary Refill : Less Than 3 Seconds Height: 5'9.00" Weight: 208lbs. oz. 94.908354tk; 27.00 BMI Method:Actual General Appearance: WD/WN, no apparent distress HEENT: PERRL/EOMI, normal ENT inspection, TMs normal, pharynx normal Neck: non-tender, full range of motion, supple, normal inspection Respiratory: chest non-tender, no respiratory distress, no accessory muscle use, other (Diffuse rhonchi and wheezes bilateral lung garcia.) Cardiovascular: regular rate, rhythm, no murmur Gastrointestinal: normal bowel sounds, non tender, soft, no organomegaly, no pulsatile mass Extremities: normal range of motion, non-tender, normal inspection, no pedal edema, no calf tenderness, normal capillary refill Neurologic/Psychiatric: alert, normal mood/affect, oriented x 3 Skin: normal color, warm/dry Progress/Results/Core Measures Suspected Sepsis SIRS Temperature: Pulse: 100 Respiratory Rate: 20 Blood Pressure 122 /72 Mean: 89 Results/Orders My Orders Orders - JENNYCANDELARIO HAND DO Albuterol/Ipra Inhalation Soln (Duoneb I (01/20/23 18:45) Prednisone Tablet (Deltasone Tablet) (01/20/23 18:45) Svn Small Volume Nebulizer (01/20/23 18:32) Chest Pa/Lat (2 View) (01/20/23 18:33) Medications Given in ED Current Medications Medications Dose Ordered Sig/Michelle Route Start Time Stop Time Status Last Admin Dose Admin Albuterol/ Ipratropium 3 ml ONCE ONCE INH 01/20/23 18:45 01/20/23 18:46 DC 01/20/23 18:58 3 ML Prednisone 50 mg ONCE ONCE PO 01/20/23 18:45 01/20/23 18:46 DC 01/20/23 18:53 50 MG Vital Signs/I&O 01/20/23 01/20/23 01/20/23 18:16 18:16 19:01 Temp 37.3 Pulse 100 Resp 20 B/P (MAP) 122/72 (89) Pulse Ox 100 99 O2 Delivery Room Air Room Air Room Air Capillary Refill : Less Than 3 Seconds Blood Pressure Mean: 89 Departure Communication (Admissions) The patient is hemodynamically stable with normal vital signs. Lungs are wheezy with rhonchi bilaterally. Chest x-ray is clear. I have independently reviewed the images. No evidence for pneumonia, pneumothorax. No indication for antibiotics at this time. I think he likely has a viral illness. He was given a DuoNeb treatment his breathing is better with no more wheezing. He was given steroids here as well. He be discharged with albuterol inhaler and steroids as an outpatient and given close primary care follow-up. He states understanding. He is comfortable and agreeable with current plan of care. Impression Primary Impression: Wheezing Additional Impression: Upper respiratory infection Qualified Codes: J06.9 - Acute upper respiratory infection, unspecified Disposition: 01 HOME, SELF-CARE Condition: Stable Departure-Patient Inst. Referrals: NO,LOCAL PHYSICIAN (PCP/Family) Primary Care Physician Patient Instructions: Viral Syndrome (DC), Wheezing Add. 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 Inhaler you will use as needed, 2 puffs every 2-4 hours. The prednisone you should take daily in the morning until it is gone. Your chest x-ray is clear without any evidence for pneumonia. return to the emergency department for any severe concerns. Follow-up primary doctor for any nonemergent needs All discharge instructions reviewed with patient and/or family. Voiced understanding. Scripts Prednisone (Prednisone) 50 Mg Tab 50 MG PO DAILY for 5 Days, #5 TAB Prov: CANDELARIO ALVARADO DO 01/20/23 Albuterol Sulfate (VENTOLIN HFA) 1 Puff Puff 2 PUFF INH Q4H for Wheezing for 30 Days, #1 EA 1 PUFF = 90 MCG Prov: CANDELARIO ALVARADO DO 01/20/23 CANDELARIO ALVARADO DO Jan 20, 2023 19:03
--- NOTE | 2023-01-20 19:12 | Diagnostic Imaging Report ---
EXAMINATION: Chest 2 view. HISTORY: Dyspnea. COMPARISON: 02/17/2015. FINDINGS: The lungs are clear without edema or pneumonia. No pleural effusion or pneumothorax. Heart size is normal. IMPRESSION: Clear lungs. Dictated by: Dictated on workstation # [id number]
[2023-01-20] MEDS ORDERED: RT-ALBUINH INH (19:23)
[2023-01-20] MEDS ORDERED: PRD50T PO (19:23)
[2023-01-20 19:42] VITALS: BP 126/70
== END 2023-01-20 19:42 | disposition home or self-care (01) ==
LOC: EDUNIT# 18:03 → ER 18:06
DX: J06.9 Acute upper respiratory infection, unspecified (principal); Z28.310 Unvaccinated for COVID-19
CPT/HCPCS: 71046; 94640

== ENCOUNTER 2023-01-23 07:03 | Emergency (ER) | payer SELFPAY ==
[~2023-01-23] VITALS: Ht 177 cm; Wt 88.0 kg
[~2023-01-23 07:03] MED LIST changes: +PRD50T PO; +RT-ALBUINH INH
[2023-01-23] MEDS ORDERED: CYCLOBENZAPRINE 10 MG (FLEXERIL) TAB PO STA (07:50)
--- NOTE | 2023-01-23 07:56 | ED General ---
General Chief Complaint: Head/Cervical Problems Stated Complaint: COUGH,PINCHED NERVE IN NECK Source of Information: Patient Exam Limitations: No Limitations History of Present Illness Date Seen by Provider: Jan 23, 2023 Time Seen by Provider: 07:07 Initial Comments 37yoM that was seen in the ER a couple days ago for cough coming in due to neck spasm on the right side of his neck due to coughing. Pain started last night. Hasn't taken any meds yet. Pain is mild to moderate, sharp, worse with movement, better with rest. Otherwise denies any other acute complaints. Allergies and Home Medications Allergies Coded Allergies: NKANo Known Allergies (Unverified Allergy, Mild, 12/19/09) Patient Home Medication List Home Medication List Reviewed: Yes Albuterol Sulfate (Ventolin Hfa) 1 Puff Puff, 2 PUFF INH Q4H Prescribed by: CANDELARIO ALVARADO MD on 01/20/231922 Amoxicillin (Amoxicillin) 500 Mg Tablet, 1,000 MG PO BID Prescribed by: LAYNE MARTI on 11/21/17 231 Cephalexin (Cephalexin) 500 Mg Tablet, 500 MG PO TID Prescribed by: KAYLA EVANS on 01/16/22 115 Hydrocodone/Acetaminophen (Hydrocodone/Acetaminophen 5 MG/325 MG TAB) 1 Each Tablet, 1 TAB PO Q4-6HR Prescribed by: KAYLA EVANS on 01/31/20 180 Ibuprofen (Ibuprofen) 800 Mg Tablet, 800 MG PO Q8H PRN for PAIN Prescribed by: KAYLA EVANS on 01/31/20 1800 Methocarbamol (Methocarbamol) 750 Mg Tablet, 750 MG PO Q6-8HR Prescribed by: KAYLA EVANS on 08/02/21 140 Methylprednisolone (Methylprednisolone Dose Pack) 4 Mg Tab.ds.pk, 4 MG PO UD Prescribed by: KAYLA EVANS on 01/16/22 115 Naproxen (Naprosyn) 500 Mg Tablet, 1 EACH PO BID PRN Prescribed by: JENELLE PERLA MD on 12/19/09 0624 Naproxen (Naprosyn) 500 Mg Tablet, 500 MG PO BID PRN for PAIN-MODERATE (5-7) Prescribed by: KAYLA EVANS on 08/02/21 140 Prednisone (Prednisone) 50 Mg Tab, 50 MG PO DAILY Prescribed by: CANDELARIO ALVARADO MD on 3/11/23 1923 Sulfamethoxazole/Trimethoprim (Bactrim Ds Tablet) 1 Each Tablet, 1 EACH PO BID Prescribed by: KAYLA EVANS on 01/31/20 1800 Review of Systems Review of Systems Constitutional: no symptoms reported EENTM: see HPI Respiratory: cough Cardiovascular: no symptoms reported Gastrointestinal: no symptoms reported Genitourinary: no symptoms reported Musculoskeletal: see HPI Skin: no symptoms reported Psychiatric/Neurological: No Symptoms Reported Past Mmosnno-[place]-Fhseam Hx Patient Social History Substance use?: No Immunizations Up To Date First/Initial COVID19 Vaccinat: DENIES Seasonal Allergies Seasonal Allergies: No Past Medical History Surgery/Hospitalization HX: DENIES Surgeries: Yes (s/p traumatic injury) Orthopedic Respiratory: No Cardiac: No Neurological: Yes Traumatic Brain Injury Genitourinary: No Gastrointestinal: No Musculoskeletal: No Endocrine: No HEENT: No Breast Psychosocial: No Integumentary: No Family Medical History No Pertinent Family Hx Physical Exam Vital Signs Vital Signs - First Documented 01/23/23 07:40 Temp 36.4 Pulse 83 Resp 18 B/P (MAP) 130/88 (102) Pulse Ox 98 Capillary Refill : Height, Weight, BMI Height: 5'9.00" Weight: 208lbs. oz. 94.955719yg; 27.00 BMI Method:Actual General Appearance: No Apparent Distress, WD/WN Eyes: Bilateral Eye Normal Inspection HEENT: PERRL/EOMI, Normal ENT Inspection, Pharynx Normal Neck: Full Range of Motion, Normal Inspection, Supple, Other (R sided SCM pain to palpation, no mass) Respiratory: Chest Non Tender, Lungs Clear, Normal Breath Sounds, No Accessory Muscle Use, No Respiratory Distress Cardiovascular: Regular Rate, Rhythm, No Edema, Normal Peripheral Pulses Gastrointestinal: Normal Bowel Sounds, Non Tender, Soft; No Distended, No Guarding Back: Normal Inspection, No CVA Tenderness Extremity: Normal Capillary Refill, Normal Inspection, Normal Range of Motion, Non Tender, No Calf Tenderness, No Pedal Edema Neurologic/Psychiatric: Alert, No Motor/Sensory Deficits, Normal Mood/Affect Skin: Normal Color, Warm/Dry Progress/Results/Core Measures Suspected Sepsis SIRS Temperature: Pulse: Respiratory Rate: Blood Pressure / Mean: Results/Orders My Orders Orders - GUNJAN KEMP MD Ketorolac Injection (Toradol Injection) (01/23/23 08:00) Cyclobenzaprine Tablet (Flexeril Tablet) (01/23/23 07:50) Lorazepam Tablet (Ativan Tablet) (01/23/23 07:58) Medications Given in ED Current Medications Medications Dose Ordered Sig/Michelle Route Start Time Stop Time Status Last Admin Dose Admin Ketorolac Tromethamine 15 mg ONCE ONCE IM 01/23/23 08:00 01/23/23 08:01 01/23/23 07:56 15 MG Vital Signs/I&O 01/23/23 07:40 Temp 36.4 Pulse 83 Resp 18 B/P (MAP) 130/88 (102) Pulse Ox 98 Capillary Refill : Progress Note : Progress Note 37yoM with above history coming in due to right sided neck muscle strain after coughing. ABCs intact and VSS on presentation. Neck muscle tender to palpation without evidence of mass or infection. Given toradol and flexeril here. Will send muscle relaxers to his pharmacy. Otherwise well-appearing. He did not fill his prescription for the albuterol and steroid from the previous ER visit, he states [place] that [place] it. He was then disch arged home in stable condition with strict return precautions. Departure Impression Primary Impression: Neck strain Qualified Codes: S16.1XXA - Strain of muscle, fascia and tendon at neck level, initial encounter Disposition: 01 HOME, SELF-CARE Condition: Stable Departure-Patient Inst. Decision time for Depature: 08:06 Referrals: NO,LOCAL PHYSICIAN (PCP/Family) Primary Care Physician Patient Instructions: Muscle Strain ED Add. Discharge Instructions: Your neck muscle is strained from the coughing. Take ibuprofen and/or Tylenol as needed for pain. You can also try a warm towel on it with massage. You can also try muscle relaxer which was sent to your pharmacy Scripts Cyclobenzaprine HCl (Cyclobenzaprine HCl) 10 Mg Tablet 10 MG PO Q8H PRN for SPASMS for 5 Days, #15 TAB 0 Refills Prov: GUNJAN KEMP MD 01/23/23 Work/School Note: Work Release Form Date Seen in the Emergency Department: Jan 23, 2023 Return to Work: Jan 24, 2023 Restrictions: No Restrictions GUNJAN KEMP MD Jan 23, 2023 07:56
[2023-01-23] MEDS ORDERED: LORazepam 1 MG (ATIVAN) TAB PO STA (07:58)
[2023-01-23] MEDS ORDERED: KETOROLAC 30 MG/ML VIAL IM ONE (08:00)
[2023-01-23] MEDS ORDERED: CYCL10TA25 PO (08:06)
[2023-01-23 08:21] VITALS: BP 130/88
== END 2023-01-23 08:21 | disposition home or self-care (01) ==
LOC: EDUNIT# 07:03 → ER 07:06
DX: S16.1XXA Strain of muscle, fascia and tendon at neck level, initial encounter (principal); X58.XXXA Exposure to other specified factors, initial encounter
CPT/HCPCS: 99284